=== PATIENT | female | born 1965 | race Caucasian/White ===

== ENCOUNTER → 2017-01-05 | Day surgery (SDC) | payer OTHER ==
[~2017-01-05] MED LIST: ACETAMINOPHEN 1000 MG/100 ML VIAL IV ONE; ARTIFICIAL TEARS OPTH OINT 3.5 APPLIC/3.5 GM TUBO ONE; BALANCED SALT SOLN OPHT IRRIG 15 ML BTL ONE; BUPIVACAINE/EPINEPHRINE 0.5% PF 10 ML VIAL ONE; LACTATED RINGER'S 1000 ML INJ 1,000 ML ONE; LEVO1CAP4 PO; LIDOCAINE 1%/EPINEPHrine 1:100,000 SOLN 20 ML VIAL ONE; MIDAZOLAM HCL 2 MG/2 ML VIAL ONE; NEOMYCIN/POLYMYXIN/BACITRACIN OINT 15 GM TUBE ONE; NEOMYCIN/POLYMYXIN/HYDROCORT OTIC SUSP 10 ML BTL ONE; ONDANSETRON HCL 4 MG/2 ML VIAL IV PUSH ONE; PROPOFOL 200 MG/20 ML AMP IV ONE; ULTR50TA PO; XANA0.5T PO; ceFAZolin INJ 1,000 MG VIAL ONE
--- NOTE | 2017-01-05 14:37 | TN ---
cc: KALIA STEEN M.D. 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 PROCEDURE Wide local excision, frozen section control which was negative by Dr. Rose, resulting in a primary defect including the lesion of 3 x 2 cm. This required a V-Y tissue rearrangement reconstruction with a secondary defect of 3 x 4.5. SURGEON Kalia Steen MD, FACS ANESTHESIA LMA general. ESTIMATED BLOOD LOSS Minimal; 10 cc of 1% lidocaine with epinephrine mixed with 0.25% Marcaine in a 2:1 ratio. COMPLICATIONS None. DETAILS OF PROCEDURE She was properly consented, marked and anesthetized. The skin was sterilized with Microcyn and sterile draping applied. Local anesthetic was infiltrated. Excision was done of this lesion and sent for frozen section from the left upper lip and negative by Dr. Rose. The secondary defect measured 3 x 4.5 cm. The V-Y fasciocutaneous flap was elevated. The tissue rearrangement was elevated and inset utilizing 5-0 Monocryl suture and 5-0 fast-absorbing gut. Dermabond was applied and absorbent dressing thereafter. Good viability of tissue was noted at the end of the case. The patient was awakened, extubated in the operating room and transferred back to the post-anesthesia care unit in stable condition. There were no complications appreciated. The patient tolerated the procedure fairly well. MD ESTEFANÍA Carvajal/CEDRIC /2:23 PM /2:34 PM JODIE
== END | disposition home or self-care (01) ==
LOC: ESDC 10:36
PROVIDERS: ATTEND Plastic Surgery
DX: D04.0 Carcinoma in situ of skin of lip (principal)
CPT/HCPCS: 00300; 14061; 88305; 88331; J0131; J0690; J2250; J2405; J3010; J7120